=== PATIENT | female | born 1990 | race Caucasian/White ===

== ENCOUNTER 2021-09-08 17:20 | Outpatient (CLI) | payer BC, SELFPAY ==
[2021-09-08 17:36] LABS: Hemoglobin* 14.2 gm/dL (12.0-16.0)
[2021-09-08 21:34] LABS: Cholesterol* 217 mg/dL (90-199); HDL Cholesterol* 45 mg/dL (>=50); LDL Cholesterol Calculated 149 mg/dL (<100); Triglycerides* 115 mg/dL (40-149)
[2021-09-08 22:49] LABS: Glucose* 92 mg/dL (60-115)
[2021-09-09 00:42] LABS: Chlamydia DNA Amplified* NOT DETECTED (No Detected); GC DNA Amplified* NOT DETECTED (No Detected)
== END 2021-09-08 17:21 | disposition home or self-care (01) ==
PROVIDERS: PCP Physician Assistant Medical; Visit Provider Physician Assistant Medical
DX: Z00.00 Encounter for general adult medical examination without abnormal findings (principal); F41.9 Anxiety disorder, unspecified; F32.A Depression, unspecified; N64.4 Mastodynia
CPT/HCPCS: 80061; 82947; 84443; 85018; 87491; 87591; 87624; 88175

== ENCOUNTER 2022-11-12 13:24 | Outpatient (CLI) | payer BC, SELFPAY | END 2022-11-12 13:25 | disposition home or self-care (01) | PROVIDERS: PCP Physician Assistant Medical; Visit Provider Physician Assistant Medical | DX: Z00.00 Encounter for general adult medical examination without abnormal findings (principal); R03.0 Elevated blood-pressure reading, without diagnosis of hypertension; Z13.29 Encounter for screening for other suspected endocrine disorder; Z13.6 Encounter for screening for cardiovascular disorders; Z13.0 Encounter for screening for diseases of the blood and blood-forming organs and certain disorders involving the immune mechanism | CPT/HCPCS: 80061; 84443 ==